=== PATIENT | female | born 1940 | race Caucasian/White ===

== ENCOUNTER → 2016-11-22 | Outpatient (CLI) | payer MEDICARE ==
[~2016-11-22] MED LIST: ACYC200C PO; ATEN25 PO; DOCU1CAP39 PO; DOXY100T PO; HYDR-3580 PO; LACT PO; LISI20 PO; NU-IRON PO
[2016-11-22 13:26] LABS: ANION GAP 8 MEQ/L (5-15); AUTOMATED NEUTROPHIL # 2.9 TH/MM3 (1.8-7.7); BASOPHIL # 0.1 TH/MM3 (0-0.2); BASOPHIL % 1.3 % (0.0-2.0); BICARBONATE 28.3 MEQ/L (21.0-32.0); BLOOD UREA NITROGEN 17 MG/DL (7-18); CHLORIDE 107 MEQ/L (98-107); EOSINOPHIL # 0.2 TH/MM3 (0-0.4); HEMATOCRIT 31.6 % (35.0-46.0); HEMO FLAGS DIFF FINAL; LYMPH % 24.9 % (9.0-44.0); LYMPHOCYTE # 1.2 TH/MM3 (1.0-4.8); MEAN CELL VOLUME 74.6 FL (80.0-100.0); MEAN CORPUSCULAR HEMOGLOBIN 23.6 PG (27.0-34.0); MEAN CORPUSCULAR HGB CONC 31.6 % (32.0-36.0); MONO % 9.1 % (0.0-8.0); NEUT % 59.7 % (16.0-70.0); PLATELET COUNT 267 TH/MM3 (150-450); POTASSIUM 4.6 MEQ/L (3.5-5.1); RED BLOOD COUNT 4.24 MIL/MM3 (4.00-5.30); RED CELL DISTRIBUTION WIDTH 17.5 % (11.6-17.2); SODIUM (NA) 143 MEQ/L (136-145); WHITE BLOOD COUNT 4.9 TH/MM3 (4.0-11.0)
[2016-11-22 13:56] LABS: ALKALINE PHOSPHATASE 64 U/L (45-117); ALT (GPT) 26 U/L (10-53); AST (GOT) 22 U/L (15-37); GLOMERULAR FILTRATION RATE 69 ML/MIN (>89); TOTAL BILIRUBIN ADULT 0.4 MG/DL (0.2-1.0); TRANSFERRIN IRON PROFILE 352 MG/DL (200-360)
== END ==
LOC: PLAB 11:09
PROVIDERS: ATTEND Family Medicine
DX: I10 Essential (primary) hypertension (principal); E53.8 Deficiency of other specified B group vitamins; R20.0 Anesthesia of skin; R53.83 Other fatigue; Z22.322 Carrier or suspected carrier of Methicillin resistant Staphylococcus aureus
CPT/HCPCS: 36415; 80053; 82607; 82746; 83540; 83550; 84443; 85025

== ENCOUNTER → 2017-01-03 | Outpatient (CLI) | payer MEDICARE | LOC: PLAB 11:47 | PROVIDERS: ATTEND Family Medicine | DX: D50.9 Iron deficiency anemia, unspecified (principal); E53.8 Deficiency of other specified B group vitamins | CPT/HCPCS: 36415; 82607; 82746; 83090; 83921 ==

== ENCOUNTER → 2017-07-15 | Outpatient (CLI) | payer MEDICARE ==
[2017-07-15 13:49] LABS: HEMATOCRIT 29.8 % (35.0-46.0); HEMOGLOBIN 9.6 GM/DL (11.6-15.3); MEAN CORPUSCULAR HEMOGLOBIN 24.2 PG (27.0-34.0); MEAN CORPUSCULAR HGB CONC 32.3 % (32.0-36.0); MEAN PLATELET VOLUME 8.6 FL (7.0-11.0); PLATELET COUNT 268 TH/MM3 (150-450); RED BLOOD COUNT 3.98 MIL/MM3 (4.00-5.30); RED CELL DISTRIBUTION WIDTH 19.2 % (11.6-17.2); WHITE BLOOD COUNT 4.4 TH/MM3 (4.0-11.0)
[2017-07-15 14:02] LABS: ALBUMIN 3.6 GM/DL (3.4-5.0); ALT (GPT) 26 U/L (10-53); AST (GOT) 26 U/L (15-37); BICARBONATE 25.6 MEQ/L (21.0-32.0); BLOOD UREA NITROGEN 21 MG/DL (7-18); CALCIUM 8.5 MG/DL (8.5-10.1); CHLORIDE 110 MEQ/L (98-107); CREATININE 0.83 MG/DL (0.50-1.00); GLOMERULAR FILTRATION RATE 67 ML/MIN (>89); GLUCOSE,FASTING 101 MG/DL (74-99); MAGNESIUM 2.2 MG/DL (1.5-2.5); SODIUM (NA) 142 MEQ/L (136-145)
[2017-07-15 14:39] LABS: % SATURATION IRON PROFILE 4.8 % (20-50); ALKALINE PHOSPHATASE 66 U/L (45-117); FERRITIN 15 NG/ML (8-252); IRON (FE) 24 MCG/DL (50-170); TOTAL BILIRUBIN ADULT 0.3 MG/DL (0.2-1.0); TOTAL IRON BINDING CAPACITY 503 MCG/DL (250-450)
[2017-07-15 14:44] LABS: FOLATE GREATER THAN 20.0 NG/ML (3.1-17.5)
== END ==
LOC: PLAB 09:43
PROVIDERS: ATTEND Nurse Practitioner Family
DX: R25.2 Cramp and spasm (principal); I10 Essential (primary) hypertension; D50.9 Iron deficiency anemia, unspecified
CPT/HCPCS: 36415; 80053; 82607; 82728; 82746; 83540; 83550; 83735; 85027